=== PATIENT | male | born 1980 | race Hispanic/Latino ===

== ENCOUNTER → 2016-10-26 | Day surgery (SDC) | payer OTHER ==
[~2016-10-26] VITALS: Ht 177.8 cm; Wt 124.3 kg
[~2016-10-26] MED LIST: VICODIN5-300 PO
--- NOTE | 2016-10-30 17:33 | Operative Report ---
Operative/Inv Procedure Report Surgery Date: 10/26/16 Name of Procedure: open anterior mesh repair of reducible umbilical hernia Pre-Operative Diagnosis: umbilical hernia, reducible Post-Operative Diagnosis: same Estimated Blood Loss: scant Surgeon/Cost Accountant: ANDRES DURAN,CHRISTIAN Castro Anesthesia: general endotracheal tube Operative/Procedure Note Note: Patient was placed on the OR table in the supine position. After successful induction of general anesthesia, another timeout was done, antibiotics given, the abdomen was clipped prepped and draped in the usual sterile fashion. An incision was planned overlying the umbilical hernia, within the umbilical skin, this spot was infiltrated with local anesthetic and then made with a 15 blade. This was deepened with cautery and the herniated fat and overlying sac were dissected circumferentially off the fascia, defining the true edges of the defect. It was oriented horizontally, we then inserted the Ventralex coated 4.3 centimeter mesh underneath the defect using the tails to center it and then closed the defect with interrupted 2-0 Maxon sutures in this case 4, incorporating the mesh with each bite. The subcutaneous layer and Agus's fascia were reapproximated to cover. The incision was irrigated and then the skin was reapproximated with a running subcuticular 4-0 Biosyn, followed by Mastisol, Steri-Strips Telfa Tegaderm. EBL minimal lap and sponge counts correct wound expectancy clean IV fluids crystalloid complications none patient tolerated the procedure well was awakened extubated returned to the recovery room in satisfactory condition.
== END ==
LOC: STS 10-16 07:00
DX: K42.9 Umbilical hernia without obstruction or gangrene (principal)
CPT/HCPCS: C1781; J0690; J2250; J2405

== ENCOUNTER 2017-04-03 08:44 | Emergency (ER) | payer OTHER ==
[~2017-04-03] VITALS: Ht 177.8 cm; Wt 122.5 kg
[2017-04-03 08:46] VITALS: BP 138/87
--- NOTE | 2017-04-03 08:52 | ED NECK/BACK PAIN COMPLAINT ---
History of Present Illness General Chief Complaint: Low Back Pain/Injury Stated Complaint: BACK PAIN Source: patient Exam Limitations: no limitations Vital Signs & Intake/Output Vital Signs & Intake/Output Vital Signs Date Time Temp Pulse Resp B/P B/P Pulse O2 O2 Flow FiO2 Mean Ox Delivery Rate 04/03 0846 98.6 98 20 138/87 98 Room Air Allergies Coded Allergies: No Known Allergies (04/03/17) Reconcile Medications Cyclobenzaprine HCl 10 MG TABLET 1 TAB PO QPM PRN MUSCLE RELAXATION Ketorolac Tromethamine 10 MG TABLET 1 TAB PO TID PRN PAIN RECEIVED IM IN ER Triage Note: PT TO ED C/O SUDDEN ONSET OF "ELECTRIC SHOCK" TYPE BACK PAIN, STARTED LAST NIGHT. DENIES OBVIOUS INJURY. TOOK TYLENOL WITH NO RELIEF. Triage Nurses Notes Reviewed? yes Onset: Abrupt Duration: constant Timing: recent history Quality/Severity: moderate Radiation: none HPI: Patient is a 36-year-old male who presents emergency and that yesterday he was in his normal state of health IN WHICH YESTERDAY EVENING he was ambulating in his house where he noted acute onset of sharp stabbing severe lumbar spine back pain. He denies any mechanism of injury trauma or fall. Patient woke up this morning noting 5/10 localized low back pain. Patient denies any fever chills abdominal pain testicular pain or swelling, or radiating paresthesia or weakness or pain to the lower extremities. Patient denies any significant back pain history or surgical intervention of his back. Patient tried Tylenol with minimal relief of symptoms. Denies any bowel or bladder incontinence or saddle paresthesia Patient states that lumbar spine movements make worse (SANJANA CAMPBELL) Past History Travel History Traveled to [place] past 21 day No Medical History Any Pertinent Medical History? 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 No (SANJANA CAMPBELL) Review of Systems Review of Systems Constitutional: Reports: no symptoms. Eyes: Reports: no symptoms. Ears, Nose, Throat, Mouth: Reports: no symptoms. Respiratory: Reports: no symptoms. Cardiovascular: Reports: no symptoms. Gastrointestinal/Abdominal: Reports: no symptoms. Musculoskeletal: Reports: see HPI, back pain, muscle pain. Skin: Reports: no symptoms. Neurological/Psychological: Reports: no symptoms. All Other Systems: Reviewed and Negative (SANJANA CAMPBELL) Physical Exam Physical Exam General Appearance: no apparent distress, obese Neck: normal inspection, supple, full range of motion Comments: HEENT: Normal EENT exam Neck: Supple, no lymphadenopathy, normal range of motion without pain or tenderness Back bilateral paralumbar muscular point tenderness, decreased active range of motion noted normal inspection Abdomen: Soft, nontender nondistended, no appreciable organomegaly. Normal bowel sounds. No ascites Extremity: No edema, no calf tenderness to palpation, normal and equal pulses. Bilateral lower extremity myotomes dermatomes DTRs intact Positive straight leg raise test noted at 60 of flexion of hip bilaterally Neuro: Alert motor sensory normal, Skin: No appreciable rash on exposed skin, skin is warm and dry. Psych: Mood and affect is normal, memory and judgment is normal. (SANJANA CAMPBELL) Progress Differential Diagnosis: C spine injury, carotid dissection, cauda equina syn, herniated disc, myofascial strain, pyelo/UTI, sciatica, spinal cord inj, thoracic outlet syn, T/L spine injury, ureterolithiasis Plan of Care: Current Medications Sig/Amna Start time Last Medication Dose Stop Time Status Admin Dexamethasone 8 MG ONCE ONE 04/03 915 UNVr (Decadron) 04/03 916 Ketorolac 30 MG ONCE ONE 04/03 915 UNVr Tromethamine 04/03 916 (Toradol) NO CONCERN OF CUADA EQUINA SYNDROME Bilateral lower extremity neurovascular was intact. Positive straight leg raise with radiating pain to the lower extremity. No concerns of discitis or spinal abscess. Patient had normal steady gait on discharge (SANJANA CAMPBELL) Departure Departure Disposition: HOME OR SELF CARE Condition: Stable Clinical Impression Primary Impression: Low back pain Referrals: RADHA CARLSON APRN (PCP/Family) Additional Instructions: As discussed you have received an intramuscular injection of Decadron for inflammation in the emergency room, begin the prescription ketorolac for pain and inflammation and cyclobenzaprine at night for muscle relaxation. Activity as tolerated. Do not just bed rest as this may worsen symptoms. Begin icing the area directly 20 minutes every 2 hours. If no better in 5-7 days follow-up with primary care doctor. If symptoms worsen return to emergency room. Prescriptions are waiting a [facility] pharmacy. Departure Forms: Customer Survey General Discharge Information Prescriptions: Current Visit Scripts Ketorolac Tromethamine 1 TAB PO TID PRN PAIN #15 TAB RECEIVED IM IN ER Cyclobenzaprine HCl 1 TAB PO QPM PRN MUSCLE RELAXATION #7 TAB (LOYD GONZALES,SANJANA) PA/PRINCIPAL SECURITY ARCHITECT Co-Sign Statement Statement: ED Attending supervision documentation- I saw and evaluated the patient. I have also reviewed all the pertinent lab results and diagnostic results. I agree with the findings and the plan of care as documented in the PA's/PRINCIPAL SECURITY ARCHITECT's documentation. x I have reviewed the ED Record and agree with the PA's/PRINCIPAL SECURITY ARCHITECT's documentation. [] Additions or exceptions (if any) to the PAs/PRINCIPAL SECURITY ARCHITECT's note and plan are summarized below: [] (JENNIFER DURAN,KAREN)
[2017-04-03] MEDS ORDERED: CYCLOBENZAPRINE10 M1 PO (09:11)
[2017-04-03] MEDS ORDERED: KETOROLAC TROME10 M1 PO (09:11)
== END 2017-04-03 09:21 ==
LOC: ERH 08:44
DX: M54.5 Low back pain (principal)
CPT/HCPCS: 96372; J1885